=== PATIENT | male | born 1955 | race African-American/Black ===

== ENCOUNTER 2017-05-29 23:34 | Inpatient (IN) ==
[2017-05-30 00:51] LABS: Basophils # 0.1 10*3/uL (0.0-0.2); Basophils % 0.7 % (0.0-0.8); Eosinophils # 0.3 10*3/uL (0.0-0.87); Eosinophils % 3.6 % (0.00-10.9); Hematocrit 46.7 VOL% (42.0-52.0); Hemoglobin 15.3 GM/DL (14.0-18.0); Immature Granulocytes % 0.6 %; Immature Granulocytes Absolute 0.05 #; Lymphocytes # 2.6 10*3/uL (1.4-4.0); Lymphocytes % 30.7 % (21.2-54.2); Mean Corpuscular HGB Conc 32.8 GM/DL (32-36); Mean Corpuscular Hemoglobin 29 PG (27-34); Mean Corpuscular Volume 87.5 FL (87-102); Monocytes % 11.3 % (1.7-12.7); Neutrophils # 4.6 10*3/uL (1.4-7.4); Neutrophils % 53.1 % (38.7-73.9); Platelet Count 229 T/CUMM (130-400); Red Blood Count 5.34 MC/CUMM (3.8-5.5); Red Cell Distribution Width 13.7 % (9.3-17.3); White Blood Count 8.6 T/CUMM (4-12)
[2017-05-30 01:01] LABS: PT Patient Result 10.8 SECS
[2017-05-30 01:13] LABS: Alanine Aminotransferase 18 U/L (16-61); Albumin 3.4 G/DL (3.4-5.0); Alkaline Phosphatase 77 U/L (45-117); Aspartate Amino Transferase 10 U/L (0-37); Blood Urea Nitrogen 10 MG/DL (7-18); Calcium 9.2 MG/DL (8.5-10.1); Glucose 96 MG/DL (74-106); Osmolality,Calculated 273.7 MOS/KG (273-304); Potassium 3.7 MMOL/L (3.5-5.1); Sodium 138 MMOL/L (136-145); Troponin I Only < 0.015 NG/ML (0.00-0.045)
[2017-05-30 01:14] LABS: Apearance,Urine CLOUDY (Clear); Bilirubin,Urine Negative (Negative); Blood, Urine Negative (Negative); Glucose,Urine (UA) Negative (Negative); Granular Casts,Urine 8 /LPF (0-1); Hyaline Casts,Urine 17 /LPF (0-3); Ketones,Urine Negative (Negative); Mucus,Urine Moderate /LPF (Occasional); Nitrite,Urine Negative (Negative); Protein,Urine 30 MG/DL; RBC,Urine 2 /HPF (0-4); Sperm,Urine Many /HPF (Negative); Urine Color Yellow (Yellow); Urine Specific Gravity 1.011 (1.001-1.035); Urine Urobilinogen < 2.0 EU/DL (0.2-1.0); WBC,Urine 2 /HPF (0-6)
[2017-05-30 01:33] LABS: Barbiturates Screen,Urine Negative (Negative); Benzodiazepines Screen,Urine Negative (Negative); Cannabinoid Screen,Urine Negative (Negative); Opiate Screen,Urine Negative (Negative); Phencyclidine Screen,Urine Negative (Negative)
[2017-05-30] MEDS ORDERED: ENOXAPARIN 40 MG/0.4 ML SYRINGE SUBCUT SCH (04:36)
[2017-05-30] MEDS ORDERED: NICOTINE 21 MG/24 HR PATCH TRANSDERM PRN (04:36)
[2017-05-30] MEDS ORDERED: ACETAMINOPHEN 325 MG TABLET PO PRN (04:36)
[2017-05-30] MEDS ORDERED: MORPHINE 2 MG/1 ML SYRINGE IV PRN (04:36)
[2017-05-30] MEDS ORDERED: ONDANSETRON 4 MG/2 ML VIAL IV PRN (04:36)
[2017-05-30 06:40] LABS: Risk Ratio 7.8; VLDL CHOLESTEROL 29.4 MG/DL
[2017-05-30] MEDS: VALSARTAN/HCTZ 160-12.5 MG TABLET PO SCH (09:23)
[2017-05-30] MEDS: ASPIRIN 325 MG TABLET PO SCH (09:23)
[2017-05-30] MEDS: DOCUSATE SODIUM 100 MG CAPSULE PO SCH ×2 (09:23→21:43)
[2017-05-30] MEDS: METOPROLOL SUCCINATE XL 100 MG TABLET PO SCH (09:23)
[2017-05-30] MEDS: CLOPIDOGREL 75 MG TABLET PO SCH (09:23)
[2017-05-30] MEDS: ENOXAPARIN 40 MG/0.4 ML SYRINGE SUBCUT SCH (09:24)
[2017-05-30] MEDS: PANTOPRAZOLE 40 MG TABLET PO SCH (09:29)
[2017-05-30] MEDS ORDERED: POTASSIUM CHLORIDE 10 MEQ TABLET PO ONE (11:55)
[2017-05-30 14:58] LABS: Free T4 (Free Thyroxine) 0.85 NG/DL (0.76-1.46); Thyroid Stimulating Hormone 2.55 uIU/ml (0.358-3.74)
[2017-05-30] MEDS: ATORVASTATIN 40 MG TABLET PO SCH (21:42)
[2017-05-31] MEDS: PANTOPRAZOLE 40 MG TABLET PO SCH (09:25)
[2017-05-31] MEDS: VALSARTAN/HCTZ 160-12.5 MG TABLET PO SCH (09:25)
[2017-05-31] MEDS: ASPIRIN 325 MG TABLET PO SCH (09:25)
[2017-05-31] MEDS: CLOPIDOGREL 75 MG TABLET PO SCH (09:26)
[2017-05-31] MEDS: METOPROLOL SUCCINATE XL 100 MG TABLET PO SCH (09:26)
[2017-05-31] MEDS: DOCUSATE SODIUM 100 MG CAPSULE PO SCH ×2 (09:26→20:30)
[2017-05-31] MEDS: ENOXAPARIN 40 MG/0.4 ML SYRINGE SUBCUT SCH (09:26)
[2017-05-31] MEDS: ATORVASTATIN 40 MG TABLET PO SCH (20:30)
[2017-06-01] MEDS: ENOXAPARIN 40 MG/0.4 ML SYRINGE SUBCUT SCH (09:15)
[2017-06-01] MEDS: ASPIRIN 325 MG TABLET PO SCH (09:22)
[2017-06-01] MEDS: VALSARTAN/HCTZ 160-12.5 MG TABLET PO SCH (09:23)
[2017-06-01] MEDS: CLOPIDOGREL 75 MG TABLET PO SCH (09:23)
[2017-06-01] MEDS: METOPROLOL SUCCINATE XL 100 MG TABLET PO SCH (09:23)
[2017-06-01] MEDS: DOCUSATE SODIUM 100 MG CAPSULE PO SCH (09:23)
[2017-06-01] MEDS: PANTOPRAZOLE 40 MG TABLET PO SCH (09:23)
[2017-06-01 11:18] VITALS: BP 97/64
== END 2017-06-01 12:30 | disposition home or self-care (01) | DRG 312 ==
LOC: N.ED 23:34 → N.EDINP 23:34 → N.5E 05-30 03:53
PROVIDERS: ADMIT Internal Medicine; ATTEND Internal Medicine